=== PATIENT | female | born 1975 | race Caucasian/White ===

== ENCOUNTER 2020-07-16 09:10 | Day surgery (SDC) | payer BC, OTHER ==
[2020-07-13 11:16] LABS: BLOOD UREA NITROGEN,BUN 12 mg/dL (7.0-18.0); CARBON DIOXIDE,CO2 26.1 mmol/L (21.0-32.0); CHLORIDE,CL 104 mmol/L (98-107); GLUCOSE RANDOM 86 mg/dL (74-106); SODIUM,NA 139 mmol/L (136-145)
[~2020-07-16 09:10] MED LIST: Glycopyrrolate 0.2 MG/ML SDV ONE; Ketorolac 30 MG/ML SDV ONE; Lidocaine 2% 5 ML SDV ONE; Midazolam 1 MG/ML 2 ML SDV ONE; Ondansetron 4 MG/2 ML SDV ONE; Propofol 200 MG/20 ML SDV ONE; Rocuronium Bromide 50 MG/5 ML Syringe ONE; Sodium Chloride 0.9% 10 ML SDV IV PRN; Sodium Chloride 0.9% 10 ML Syringe FLUSH PRN; Sodium Chloride 0.9% 2.5 ML Syringe FLUSH PRN; ceFAZolin 2 GM in Premix Bag 1 BAG IV ONE; fentaNYL 250 MCG/5 ML SDV ONE
[2020-07-16] MEDS: Lactated Ringers 1,000 ML IV SCH ×2 (10:00→15:21)
--- NOTE | 2020-07-16 10:07 | PCM.PREANE ---
Preanesthetic Assessment - Anesthesia/Transfusion/Family Hx Anesthesia History: Prior Anesthesia Without Reaction Family History of Anesthesia Reaction: No Transfusion History: Prior Transfusion Without Reaction Intubation History: Unknown - Review of Systems General: No Symptoms Pulmonary: No Symptoms Cardiovascular: No Symptoms Gastrointestinal: No Symptoms Neurological: No Symptoms Other: Reports: None - Physical Assessment Vital Signs: Last Vital Signs Temp 37.1 C 07/16/20 10:01 Pulse 92 07/16/20 10:01 Resp 18 07/16/20 10:01 BP 117/72 07/16/20 10:01 Pulse Ox 96 07/16/20 10:01 Height: 5 ft 7 in Weight: 60.328 kg ASA Class: 2 Mental Status: Alert & Oriented x3 Airway Class: Mallampati = 2 Dentition: Reports: Normal Dentition, Partial (upper andupper and lower) Thyro-Mental Finger Breadths: 3 Mouth Opening Finger Breadths: 2 (very small mouth) ROM/Head Extension: Full Lungs: Clear to Auscultation, Normal Respiratory Effort Cardiovascular: Regular Rate, Regular Rhythm - Lab Values: Laboratory Last Values WBC 7.15 K/uL (4.0-11.0) 07/13/20 10:24 RBC 4.48 M/uL (4.30-5.90) 07/13/20 10:24 Hgb 13.6 g/dL (12.0-16.0) 07/13/20 10:24 Hct 39.4 % (36.0-46.0) 07/13/20 10:24 MCV 87.9 fL (80.0-98.0) 07/13/20 10:24 MCH 30.4 pg (27.0-32.0) 07/13/20 10:24 MCHC 34.5 g/dL (31.0-37.0) 07/13/20 10:24 RDW Std Deviation 40.3 fl (28.0-62.0) 07/13/20 10:24 RDW Coeff of Natanael 13 % (11.0-15.0) 07/13/20 10:24 Plt Count 300 K/uL (150-400) 07/13/20 10:24 MPV 9.30 fL (7.40-12.00) 07/13/20 10:24 Nucleated RBC % 0.0 /100WBC 07/13/20 10:24 Nucleated RBCs # 0 K/uL 07/13/20 10:24 Sodium 139 mmol/L (136-145) 07/13/20 10:24 Potassium 4.0 mmol/L (3.5-5.1) 07/13/20 10:24 Chloride 104 mmol/L (98-107) 07/13/20 10:24 Carbon Dioxide 26.1 mmol/L (21.0-32.0) 07/13/20 10:24 BUN 12 mg/dL (7.0-18.0) 07/13/20 10:24 Creatinine 0.9 mg/dL (0.6-1.0) 07/13/20 10:24 Est Cr Clr Drug Dosing TNP 07/13/20 10:24 Estimated GFR (MDRD) > 60.0 ml/min 07/13/20 10:24 Glucose 86 mg/dL (74-106) 07/13/20 10:24 Calcium 8.6 mg/dL (8.5-10.1) 07/13/20 10:24 HCG, Qual NEGATIVE (NEG) 07/13/20 10:24 Blood Type A POSITIVE 07/13/20 10:30 Antibody Screen NEGATIVE 07/13/20 10:30 - Allergies Allergies/Adverse Reactions: Allergies Allergy/AdvReac Type Severity Reaction Status Date / Time No Known Allergies Allergy Verified 07/16/20 10:01 - Blood Blood Available: No - Anesthesia Plan Pre-Op Medication Ordered: None - Acknowledgements Anesthesia Type Planned: General Anesthesia Pt an Appropriate Candidate for the Planned Anesthesia: Yes Alternatives and Risks of Anesthesia Discussed w Pt/Guardian: Yes Pt/Guardian Understands and Agrees with Anesthesia Plan: Yes PreAnesthesia Questionnaire HEENT History: Reports: Other (See Below) Other HEENT History: has chronic Tinnitis, has upper and lower removable partial dentures Cardiovascular History: Reports: Hypertension Gastrointestinal History: Reports: Other (See Below) Other Gastrointestinal History: some heartburn- no medication OCCUPATIONAL NURSE History: Reports: Musculoskeletal History: Reports: Fracture Other Musculoskeletal History: hx of fx arm as a child Neurological History: Reports: Concussion Psychiatric History: Reports: Anxiety, Depression Hematologic History: Reports: Blood Transfusion(s) Oncologic (Cancer) History: Reports: Cervix - Past Surgical History Head Surgeries/Procedures: Reports: None HEENT Surgical History: Reports: Tonsillectomy GI Surgical History: Reports: Cholecystectomy Female Surgical History: Reports: Section, LEEP - SUBSTANCE USE Tobacco Use Status *Q: Current Every Day Tobacco User (1/2 ppd) Tobacco Use Within Last Twelve Months: Cigarettes Recreational Drug Use History: No - HOME MEDS Home Medications: Home Meds Bisoprolol/Hydrochlorothiazide [Bisoprolol-Hctz 5-6.25 mg Tab] 1 tab PO QAM 07/13/20 [History] - CURRENT (IN HOUSE) MEDS Current Meds: Current Medications Lactated Ringer's (Ringers, Lactated) 1,000 mls @ 125 mls/hr IV ASDIRECTED NASIR Last Admin: 07/16/20 10:00 Dose: 125 mls/hr Documented by: Sodium Chloride (Saline Flush) 10 ml FLUSH ASDIRECTED PRN PRN Reason: Keep Vein Open Sodium Chloride (Saline Flush) 2.5 ml FLUSH ASDIRECTED PRN PRN Reason: Keep Vein Open Sodium Chloride (Normal Saline) 10 ml IV ASDIRECTED PRN PRN Reason: IV Use Discontinued Medications Fentanyl (Sublimaze) Confirm Administered Dose 250 mcg .ROUTE .STK-MED ONE Stop: 07/16/20 07:12 Glycopyrrolate (Robinul) Confirm Administered Dose 0.8 mg .ROUTE .STK-MED ONE Stop: 07/16/20 07:12 Cefazolin Sodium/Dextrose 2 gm (/ Premix) 50 mls @ 100 mls/hr IV ONETIME ONE Stop: 07/13/20 10:14 Ketorolac Tromethamine (Toradol) Confirm Administered Dose 30 mg .ROUTE .STK-MED ONE Stop: 07/16/20 07:12 Lidocaine (Xylocaine-Mpf 2%) Confirm Administered Dose 5 ml .ROUTE .STK-MED ONE Stop: 07/16/20 07:12 Midazolam HCl (Versed 1 Mg/Ml) Confirm Administered Dose 2 mg .ROUTE .STK-MED ONE Stop: 07/16/20 07:12 Ondansetron HCl (Zofran) Confirm Administered Dose 4 mg .ROUTE .STK-MED ONE Stop: 07/16/20 07:12 Propofol (Diprivan 20 Ml) Confirm Administered Dose 200 mg .ROUTE .STK-MED ONE Stop: 07/16/20 07:11 Rocuronium Perris (Rocuronium Perris) Confirm Administered Dose 50 mg .ROUTE .[facility] ONE Stop: 07/16/20 07:12
[2020-07-16] MEDS ORDERED: Scopolamine 1.5 MG Transdermal Patch TRDERM PRN (10:08)
[2020-07-16] MEDS ORDERED: fentaNYL 100 MCG/2 ML SDV IVPUSH PRN (10:21)
[2020-07-16] MEDS ORDERED: Acetaminophen 1,000 MG in Premix Bag 1 BAG IV PRN (10:21)
[2020-07-16] MEDS ORDERED: ceFAZolin 1 GM Vial ONE (12:09)
[2020-07-16] MEDS ORDERED: HYDROmorphone 2 MG/ML Syringe ONE (12:49)
[2020-07-16] MEDS ORDERED: Fluorescein 5 ML Vial ONE (12:55)
[2020-07-16] MEDS ORDERED: Ondansetron 4 MG/2 ML SDV IVPUSH PRN (13:13)
[2020-07-16] MEDS ORDERED: Ketorolac 30 MG/ML SDV IVPUSH ONE (13:13)
[2020-07-16] MEDS ORDERED: Acetaminophen/oxyCODONE 325-5 MG Tab PO PRN (13:13)
[2020-07-16] MEDS ORDERED: Promethazine 25 MG/ML SDV IM PRN (13:13)
--- NOTE | 2020-07-16 13:16 | PCM.OPNOTE ---
- General Post-Op/Procedure Note Date of Surgery/Procedure: 07/16/20 Operative Procedure(s): TVH,Kyrie salpengectomy and cystoscopy. Pre Op Diagnosis: CIS Post-Op Diagnosis: Same Anesthesia Technique: General ET Tube Primary Surgeon: Obed Iraheta EBL in mLs: 100 Complications: None Condition: Good
[2020-07-16] MEDS: Morphine 4 MG/ML Syringe IVPUSH PRN ×2 (14:06→16:32)
--- NOTE | 2020-07-16 14:19 | PCM.POSTAN ---
POST ANESTHESIA ASSESSMENT - MENTAL STATUS Mental Status: Alert, Oriented - VITAL SIGNS Vital Signs: Last Vital Signs Temp 36.7 C 07/16/20 13:15 Pulse 73 07/16/20 14:10 Resp 14 07/16/20 14:10 BP 154/93 H 07/16/20 14:10 Pulse Ox 95 07/16/20 14:10 - RESPIRATORY Respiratory Status: Respiratory Rate WNL, Airway Patent, O2 Saturation Stable - CARDIOVASCULAR CV Status: Pulse Rate WNL, Blood Pressure Stable - GASTROINTESTINAL GI Status: No Symptoms - PAIN Pain Score: 0 - POST OP HYDRATION Hydration Status: Adequate & Stable - OBSERVATIONS Free Text/Narrative:: The patient has no complaints at this time. There were no apparent anesthetic complications at this time. Discharge to floor per criteria.
[2020-07-16] MEDS: Ketorolac 30 MG/ML SDV IVPUSH PRN (21:11)
[2020-07-17] MEDS: Acetaminophen/oxyCODONE 325-5 MG Tab PO PRN ×2 (02:34→06:37)
[2020-07-17] MEDS: Ketorolac 30 MG/ML SDV IVPUSH PRN (04:31)
[2020-07-17 06:09] LABS: CARBON DIOXIDE,CO2 26.8 mmol/L (21.0-32.0); POTASSIUM,K 3.9 mmol/L (3.5-5.1)
[2020-07-17] MEDS ORDERED: Bisacodyl 10 MG Supp RECTAL ONE (06:13)
--- NOTE | 2020-07-17 07:12 | PCM48HPAN ---
Post Anesthesia Note - EVALUATION WITHIN 48HRS OF ANESTHETIC Vital Signs in Normal Range: Yes Patient Participated in Evaluation: Yes Respiratory Function Stable: Yes Airway Patent: Yes Cardiovascular Function Stable: Yes Hydration Status Stable: Yes Pain Control Satisfactory: No Vital Signs: Last Vital Signs Temp 36.9 C 07/17/20 04:32 Pulse 91 07/17/20 04:32 Resp 19 07/17/20 04:32 BP 112/69 07/17/20 04:32 Pulse Ox 100 07/17/20 04:32 - COMMENTS/OBSERVATIONS Free Text/Narrative:: Patient is in pain secondary to constipation. The overnight Nurse was at the patient's side in the bathroom. Patient states that she is constipated and requests an enema. She also complains of pain secondary to the inability to defecate. Patient wants the Nurse to call Dr. Iraheta to request and enema. Recommending 1 dose of IV Tylenol to help with pain control now. This was discussed with the patient's overnight Nurse and she stated that she would have "someone" in OB contact Dr. Iraheta.
[2020-07-17] MEDS ORDERED: Acetaminophen 1,000 MG in Premix Bag 1 BAG IV ONE (07:15)
[2020-07-17 08:07] VITALS: BP 111/78; PULSE 96
--- NOTE | 2020-07-17 09:47 | OR ---
SURGEON: Obed Iraheta MD DATE OF PROCEDURE: 07/16/2020 PREOPERATIVE DIAGNOSIS: Severe dysplasia, carcinoma in situ of the cervix. POSTOPERATIVE DIAGNOSIS: Severe dysplasia, carcinoma in situ of the cervix. OPERATIONS PERFORMED: Total vaginal hysterectomy, vaginal bilateral salpingectomy preserving both ovaries, and cystoscopy. PRIMARY SURGEON: Obed Iraheta MD CIRCUITRY NEGATIVE INSPECTOR: OR nurse and tech. ANESTHESIA: General endotracheal intubation, Dr. Bansal and Gavin. ESTIMATED BLOOD LOSS: Less than 100 mL. COMPLICATIONS: None. FINDINGS: Uterus about 8-week size. Both ovaries essentially are normal. INDICATIONS FOR SURGERY: This patient is 45. She has carcinoma in situ of the cervix and endocervical canal by cervical biopsy. She is finished with her family. She is admitted for hysterectomy, vaginal versus laparoscopic, depending on the examination under anesthesia. PROCEDURE IN DETAIL: The patient was brought to the OR, properly identified. After adequate level of anesthesia, examination under anesthesia was performed and it was deemed possible and safe to do the surgery vaginally. The patient placed in stirrups, prepped and draped in sterile fashion as usual. A short weighted speculum placed in the vagina and straight catheter was used to empty the bladder. Using electrocautery, circular incision in the vaginal mucosa was done and then the posterior cul-de-sac was entered posteriorly with the Thurman scissors. The peritoneum and the vagina tacked posteriorly and the short weighted speculum replaced with extended long weighted speculum. The uterosacral ligaments on both sides clamped with a curved Zeppelin, transected, and suture ligated with 2- 0 Vicryl in a Lilo fashion. The same thing done with the cardinal ligament. Then, the cervicovesical space was entered anteriorly with the Metzenbaum and the bladder retracted completely away from the operative field. The anterior cul-de-sac was entered anteriorly and then the broad ligament was clamped with curved Zeppelin on both sides, transected, and suture ligated with 2-0 Vicryl pop-off at this step and the uterine vessel suture ligated. The round ligament was clamped with curved Zeppelin, transected, and suture ligated with 2-0 Vicryl from both sides. Then, the uterus delivered posteriorly and the superior pedicle was taken with a 90-degree curved Zeppelin. The tubes were included with the specimen, but both ovaries preserved, and then the superior third pedicle was tied twice with a free tie. Inspection of the operative field showed no oozing, no bleeding. We proceeded to close the vaginal cuff with 2-0 Vicryl interrupted [id number] suture. While we were doing that, we asked the Anesthesia personnel to give the patient fluorescein and then cystoscopy was performed. The bladder was intact. Both ureteric orifices seen with the dye coming from both of them. Thus, the patency of both ureters verified. Satisfied with these finding, the procedure ended. Instrument and sponge count was correct. The patient tolerated the procedure well and went to recovery room in stable general condition. MAIRA / SHYAM /[id number]
--- NOTE | 2020-07-17 11:47 | PCM.SURGPN ---
- General Info Date of Service: 07/17/20 POD#: 1 Functional Status: Reports: Pain Controlled - Review of Systems General: Reports: No Symptoms HEENT: Reports: No Symptoms Pulmonary: Reports: No Symptoms Cardiovascular: Reports: No Symptoms Gastrointestinal: Reports: No Symptoms Genitourinary: Reports: No Symptoms Musculoskeletal: Reports: No Symptoms Skin: Reports: No Symptoms Neurological: Reports: No Symptoms Psychiatric: Reports: No Symptoms - Patient Data Vitals - Most Recent: Last Vital Signs Temp 36.9 C 07/17/20 08:06 Pulse 96 07/17/20 08:06 Resp 18 07/17/20 08:06 BP 111/78 07/17/20 08:06 Pulse Ox 100 07/17/20 08:06 Weight - Most Recent: 60.328 kg I&O - Last 24 Hours: Intake & Output 07/16/20 07/17/20 07/17/20 22:59 06:59 14:59 Intake Total 800 Output Total 750 90 Balance 50 -90 Lab Results Last 24 Hrs: Laboratory Results - last 24 hr 07/17/20 07/17/20 07/17/20 Range/Units 05:10 05:10 05:22 WBC 22.08 H (4.0-11.0) K/uL RBC 2.69 L (4.30-5.90) M/uL Hgb 8.1 L (12.0-16.0) g/dL Hct 24.0 L (36.0-46.0) % MCV 89.2 (80.0-98.0) fL MCH 30.1 (27.0-32.0) pg MCHC 33.8 (31.0-37.0) g/dL RDW Std Deviation 41.1 (28.0-62.0) fl RDW Coeff of Natanael 13 (11.0-15.0) % Plt Count 387 (150-400) K/uL MPV 9.70 (7.40-12.00) fL Neut % (Auto) 79.2 (48.0-80.0) % Lymph % (Auto) 15.0 L (16.0-40.0) % George % (Auto) 5.5 (0.0-15.0) % Eos % (Auto) 0.2 (0.0-7.0) % Baso % (Auto) 0.1 (0.0-1.5) % Neut # (Auto) 17.5 H (1.4-5.7) K/uL Lymph # (Auto) 3.3 H (0.6-2.4) K/uL George # (Auto) 1.2 H (0.0-0.8) K/uL Eos # (Auto) 0.0 (0.0-0.7) K/uL Baso # (Auto) 0.0 (0.0-0.1) K/uL Nucleated RBC % 0.0 /100WBC Nucleated RBCs # 0 K/uL Sodium 135 L (136-145) mmol/L Potassium 3.9 (3.5-5.1) mmol/L Chloride 99 (98-107) mmol/L Carbon Dioxide 26.8 (21.0-32.0) mmol/L BUN 25 H (7.0-18.0) mg/dL Creatinine 1.8 H (0.6-1.0) mg/dL Est Cr Clr Drug Dosing 37.59 mL/min Estimated GFR (MDRD) 30.4 ml/min Glucose 138 H (74-106) mg/dL POC Glucose 141 H (60-110) mg/dL Calcium 7.5 L (8.5-10.1) mg/dL Med Orders - Current: Current Medications Fentanyl (Sublimaze) 50 mcg IVPUSH Q5M PRN PRN Reason: Pain Lactated Ringer's (Ringers, Lactated) 1,000 mls @ 125 mls/hr IV ASDIRECTED [facility] Last Admin: 07/16/20 15:21 Dose: 125 mls/hr Documented by: Acetaminophen 1,000 mg/ Premix 100 mls @ 400 mls/hr IV ONETIME PRN PRN Reason: Pain Last Admin: 07/16/20 13:47 Dose: 400 mls/hr Documented by: Ketorolac Tromethamine (Toradol) 30 mg IVPUSH Q6H PRN PRN Reason: Pain (severe 7-10) Stop: 07/21/20 19:16 Last Admin: 07/17/20 04:31 Dose: 30 mg Documented by: Morphine Sulfate (Morphine) 4 mg IVPUSH Q2H PRN PRN Reason: Pain (severe 7-10) Last Admin: 07/16/20 16:32 Dose: 4 mg Documented by: Ondansetron HCl (Zofran) 4 mg IVPUSH Q6H PRN PRN Reason: Nausea/Vomiting Last Admin: 07/16/20 20:51 Dose: 4 mg Documented by: Oxycodone/Acetaminophen (Percocet 325-5 Mg) 1 tab PO Q4H PRN PRN Reason: Pain (moderate 4-6) Last Admin: 07/17/20 06:37 Dose: 1 tab Documented by: Oxycodone/Acetaminophen (Percocet 325-5 Mg) 2 tab PO Q4H PRN PRN Reason: Pain (moderate 4-6) Promethazine HCl (Phenergan) 25 mg IM Q6H PRN PRN Reason: Nausea/Vomiting Scopolamine (Transderm-Scop) 1.5 mg TRDERM Q72H PRN PRN Reason: Nausea Last Admin: 07/16/20 10:22 Dose: 1.5 mg Documented by: Sodium Chloride (Saline Flush) 10 ml FLUSH ASDIRECTED PRN PRN Reason: Keep Vein Open Sodium Chloride (Saline Flush) 2.5 ml FLUSH ASDIRECTED PRN PRN Reason: Keep Vein Open Last Admin: 07/16/20 16:52 Dose: 2.5 ml Documented by: Sodium Chloride (Normal Saline) 10 ml IV ASDIRECTED PRN PRN Reason: IV Use Discontinued Medications Bisacodyl (Dulcolax) 10 mg RECTAL ONETIME ONE Stop: 07/17/20 06:14 Last Admin: 07/17/20 06:38 Dose: 10 mg Documented by: Cefazolin Sodium (Ancef) Confirm Administered Dose 2 gm .ROUTE .STK-MED ONE Stop: 07/16/20 12:10 Fentanyl (Sublimaze) Confirm Administered Dose 250 mcg .ROUTE .STK-MED ONE Stop: 07/16/20 07:12 Fluorescein Sodium (Ak-Fluor) Confirm Administered Dose 5 ml .ROUTE .STK-MED ONE Stop: 07/16/20 12:56 Glycopyrrolate (Robinul) Confirm Administered Dose 0.8 mg .ROUTE .STK-MED ONE Stop: 07/16/20 07:12 Hydromorphone HCl (Dilaudid) Confirm Administered Dose 2 mg .ROUTE .STK-MED ONE Stop: 07/16/20 12:50 Cefazolin Sodium/Dextrose 2 gm (/ Premix) 50 mls @ 100 mls/hr IV ONETIME ONE Stop: 07/13/20 10:14 Acetaminophen (Ofirmev 1000 Mg/100 Ml) Confirm Administered Dose 100 mls @ as directed .ROUTE .STK-MED ONE Stop: 07/16/20 13:46 Acetaminophen 1,000 mg/ Premix 100 mls @ 400 mls/hr IV NOW ONE Stop: 07/17/20 07:29 Ketorolac Tromethamine (Toradol) Confirm Administered Dose 30 mg .ROUTE .STK-MED ONE Stop: 07/16/20 07:12 Ketorolac Tromethamine (Toradol) 30 mg IVPUSH ONETIME ONE Stop: 07/16/20 13:14 Last Admin: 07/16/20 13:00 Dose: 30 mg Documented by: Lidocaine (Xylocaine-Mpf 2%) Confirm Administered Dose 5 ml .ROUTE .STK-MED ONE Stop: 07/16/20 07:12 Midazolam HCl (Versed 1 Mg/Ml) Confirm Administered Dose 2 mg .ROUTE .STK-MED ONE Stop: 07/16/20 07:12 Ondansetron HCl (Zofran) Confirm Administered Dose 4 mg .ROUTE .STK-MED ONE Stop: 07/16/20 07:12 Propofol (Diprivan 20 Ml) Confirm Administered Dose 200 mg .ROUTE .STK-MED ONE Stop: 07/16/20 07:11 Rocuronium Pitkin (Rocuronium Pitkin) Confirm Administered Dose 50 mg .ROUTE .STK-MED ONE Stop: 07/16/20 07:12 - Exam Wound/Incisions: Healing Well General: Alert, Oriented HEENT: Pupils Equal Neck: Supple Lungs: Clear to Auscultation, Normal Respiratory Effort Cardiovascular: Regular Rate, Regular Rhythm GI/Abdominal Exam: Normal Bowel Sounds, Soft, Non-Tender, No Organomegaly, No Distention, No Abnormal Bruit, No Mass, Pelvis Stable Extremities: Normal Inspection, Normal Range of Motion, Non-Tender, No Pedal Edema, Normal Capillary Refill Skin: Warm, Dry, Intact Neurological: No New Focal Deficit Psy/Mental Status: Alert, Normal Affect, Normal Mood Sepsis Event Note - Evaluation Sepsis Screening Result: No Definite Risk - Focused Exam Vital Signs: Vital Signs Temp Pulse Resp BP BP Pulse Ox 07/17/20 08:06 36.9 C 96 18 111/78 100 07/17/20 05:20 37.1 C 106 H 18 109/72 97 07/17/20 04:32 36.9 C 91 19 112/69 100 07/17/20 01:26 36.8 C 82 16 116/56 L 98 - Problem List Review Problem List Initiated/Reviewed/Updated: Yes - My Orders Last 24 Hours: Active Orders 24 hr Category Date Time Status Patient Status [ADT] Routine ADT 07/16/20 13:13 Active Antiembolic Devices [RC] PER UNIT ROUTINE Care 07/16/20 13:14 Active Bennett Catheter Insertion [Insert Urinary Catheter] [OM. Care 07/16/20 16:20 Ordered PC] Q24H Notify Provider Vital Signs [RC] ASDIRECTED Care 07/16/20 13:13 Active Oxygen Therapy [RC] ASDIRECTED Care 07/16/20 13:13 Active RT Incentive Spirometry [RC] Q2HWA Care 07/16/20 13:13 Active Up With Assistance [RC] PER UNIT ROUTINE Care 07/16/20 13:13 Active Up ad Eugenia [RC] PER UNIT ROUTINE Care 07/16/20 13:13 Active Vital Signs [RC] PER UNIT ROUTINE Care 07/16/20 13:13 Active Regular Diet [DIET] Diet 07/16/20 Dinner Active Acetaminophen/oxyCODONE [Percocet 325-5 MG] Med 07/16/20 13:13 Active 1 tab PO Q4H PRN Acetaminophen/oxyCODONE [Percocet 325-5 MG] Med 07/16/20 13:13 Active 2 tab PO Q4H PRN Ketorolac [Toradol] Med 07/16/20 19:15 Active 30 mg IVPUSH Q6H PRN Morphine Med 07/16/20 13:13 Active 4 mg IVPUSH Q2H PRN Ondansetron [Zofran] Med 07/16/20 13:13 Active 4 mg IVPUSH Q6H PRN Promethazine [Phenergan] Med 07/16/20 13:13 Active 25 mg IM Q6H PRN Peripheral IV Discontinue [OM.PC] Routine Oth 07/16/20 13:13 Ordered Sequential Compression Device [OM.PC] Per Unit Routine Oth 07/16/20 13:13 Ordered Resuscitation Status Routine Resus Stat 07/16/20 13:13 Ordered Medication Orders Fentanyl (Sublimaze) 50 mcg IVPUSH Q5M PRN PRN Reason: Pain Lactated Ringer's (Ringers, Lactated) 1,000 mls @ 125 mls/hr IV ASDIRECTED NASIR Last Admin: 07/16/20 15:21 Dose: 125 mls/hr Documented by: Infusion: 07/16/20 15:21 Dose: 125 mls/hr Documented by: Admin: 07/16/20 10:00 Dose: 125 mls/hr Documented by: SHEREEN Acetaminophen 1,000 mg/ Premix 100 mls @ 400 mls/hr IV ONETIME PRN PRN Reason: Pain Last Admin: 07/16/20 13:47 Dose: 400 mls/hr Documented by: HOLLY Ketorolac Tromethamine (Toradol) 30 mg IVPUSH Q6H PRN PRN Reason: Pain (severe 7-10) Stop: 07/21/20 19:16 Last Admin: 07/17/20 04:31 Dose: 30 mg Documented by: Admin: 07/16/20 21:11 Dose: 30 mg Documented by: DEMETRICE Morphine Sulfate (Morphine) 4 mg IVPUSH Q2H PRN PRN Reason: Pain (severe 7-10) Last Admin: 07/16/20 16:32 Dose: 4 mg Documented by: Admin: 07/16/20 14:06 Dose: 4 mg Documented by: HOLLY Ondansetron HCl (Zofran) 4 mg IVPUSH Q6H PRN PRN Reason: Nausea/Vomiting Last Admin: 07/16/20 20:51 Dose: 4 mg Documented by: DEMETRICE Oxycodone/Acetaminophen (Percocet 325-5 Mg) 1 tab PO Q4H PRN PRN Reason: Pain (moderate 4-6) Last Admin: 07/17/20 06:37 Dose: 1 tab Documented by: Admin: 07/17/20 02:34 Dose: 1 tab Documented by: DEMETRICE Oxycodone/Acetaminophen (Percocet 325-5 Mg) 2 tab PO Q4H PRN PRN Reason: Pain (moderate 4-6) Promethazine HCl (Phenergan) 25 mg IM Q6H PRN PRN Reason: Nausea/Vomiting Scopolamine (Transderm-Scop) 1.5 mg TRDERM Q72H PRN PRN Reason: Nausea Last Admin: 07/16/20 10:22 Dose: 1.5 mg Documented by: FENSGLO Sodium Chloride (Saline Flush) 10 ml FLUSH ASDIRECTED PRN PRN Reason: Keep Vein Open Sodium Chloride (Saline Flush) 2.5 ml FLUSH ASDIRECTED PRN PRN Reason: Keep Vein Open Last Admin: 07/16/20 16:52 Dose: 2.5 ml Documented by: HINDTIF Sodium Chloride (Normal Saline) 10 ml IV ASDIRECTED PRN PRN Reason: IV Use - Assessment Assessment (Free Text/Narrative):: Doing well. - Plan Plan (Free Text/Narrative):: Post hysterectomy instruction.
== END 2020-07-17 13:17 | disposition home or self-care (01) ==
LOC: MW.SDS 09:10 → MW.OB 17:21 → MW.SDS 07-17 13:17
PROVIDERS: ATTEND Obstetrics & Gynecology
DX: D06.0 Carcinoma in situ of endocervix (principal); R87.620 Atypical squamous cells of undetermined significance on cytologic smear of vagina (ASC-US); R87.811 Vaginal high risk human papillomavirus (HPV) DNA test positive; I10 Essential (primary) hypertension; Z79.899 Other long term (current) drug therapy; F17.210 Nicotine dependence, cigarettes, uncomplicated; Z98.890 Other specified postprocedural states
CPT/HCPCS: 36415; 51702; 58262; 80048; 82962; 84703; 85025; 85027; 86850; 86900; 86901; 88307; A9270; J0131; J0690; J1170; J1885; J2250; J2270; J2405; J2704; J3010; J3490; J7120; 00944

== ENCOUNTER 2020-07-19 02:12 | Emergency (ER) | payer OTHER ==
[2020-07-19] MEDS ORDERED: Sodium Chloride 0.9% 2.5 ML Syringe FLUSH PRN (02:32)
[2020-07-19] MEDS ORDERED: Sodium Chloride 0.9% 10 ML Syringe FLUSH PRN (02:32)
[2020-07-19] MEDS ORDERED: Lactated Ringers 1,000 ML IV ONE (02:33)
--- NOTE | 2020-07-19 02:34 | EDM.PDOC ---
ED HPI GENERAL MEDICAL PROBLEM - General Chief Complaint: Abdominal Pain Stated Complaint: RECENT HYSTERECTOMY, ABDOMINAL PAIN Time Seen by Provider: 07/19/20 02:24 - History of Present Illness INITIAL COMMENTS - FREE TEXT/NARRATIVE: 45-year-old female who is 2 days postop from a transvaginal hysterectomy. Patient states that she has not been able to have a bowel movement since the procedure she has had gradually worsening bloating and fullness. She states she does not have a large amount of abdominal pain may be 5 out of 10. No fevers or chills no trouble urinating. No vomiting. Patient states she is tried to Dulcolax as an enemas without improvement. She denies any vaginal bleeding or discharge. - Related Data Allergies Allergy/AdvReac Type Severity Reaction Status Date / Time No Known Allergies Allergy Verified 07/19/20 02:22 Home Meds: Home Meds Bisoprolol/Hydrochlorothiazide [Bisoprolol-Hctz 5-6.25 mg Tab] 1 tab PO QAM PRN 07/13/20 [History] Hydrocodone/Acetaminophen [Hydrocodon-Acetaminoph 2.5-325] 1 each PO Q6HR 07/19/20 [History] Past Medical History HEENT History: Reports: Other (See Below) Other HEENT History: has chronic Tinnitis, has upper and lower removable partial dentures Cardiovascular History: Reports: Hypertension Gastrointestinal History: Reports: Other (See Below) Other Gastrointestinal History: some heartburn- no medication SHIRRING TENDER History: Reports: Musculoskeletal History: Reports: Fracture Other Musculoskeletal History: hx of fx arm as a child Neurological History: Reports: Concussion Psychiatric History: Reports: Anxiety, Depression Hematologic History: Reports: Blood Transfusion(s) Oncologic (Cancer) History: Reports: Cervix - Past Surgical History Head Surgeries/Procedures: Reports: None HEENT Surgical History: Reports: Tonsillectomy GI Surgical History: Reports: Cholecystectomy Female Surgical History: Reports: Section, LEEP ED ROS GENERAL - Review of Systems Review Of Systems: See Below Free Text/Narrative/Comment: General: No fever. Neck: No neck stiffness. Respiratory: No shortness of breath. Cardiac: No chest pain. Gastrointestinal: Per HPI Urinary: No dysuria. Musculoskeletal: No myalgias/arthralgias. Neurologic: No headache. ED EXAM, GENERAL - Physical Exam Exam: See Below Free Text/Narrative:: General Appearance: No acute distress, appears comfortable Skin: No rash HEENT: Normocephalic/atraumatic, sclera anicteric, mucous membranes dry Neck: Normal range of motion Chest and Lungs: Bilateral breath sounds, clear to auscultation Cardiovascular: Tachycardic rate and regular rhythm, no murmur Abdomen: Soft, minimal bilateral lower quadrant tenderness but no guarding or rebound. Back: Normal Musculoskeletal: No edema or tenderness Neurologic: Awake, alert, no obvious deficits, moving all extremities Psychiatric: Appropriate, cooperative Course - Vital Signs Last Recorded V/S: Last Vital Signs Temp 98.9 F 07/19/20 02:24 Pulse 115 H 07/19/20 02:59 Resp 18 07/19/20 02:45 BP 122/77 07/19/20 02:45 Pulse Ox 100 07/19/20 02:45 - Orders/Labs/Meds Orders: Active Orders 24 hr Category Date Time Status Abdomen Pelvis w Cont [CT] Stat Exams 07/19/20 02:32 Ordered CBC WITH AUTO DIFF [HEME] Stat Lab 07/19/20 02:32 Ordered COMPREHENSIVE METABOLIC PN,CMP [CHEM] Stat Lab 07/19/20 02:32 Ordered LACTIC ACID,WHOLE BLOOD [BG] Stat Lab 07/19/20 02:32 Ordered Lactated Ringers [Ringers, Lactated] 1,000 ml Med 07/19/20 02:33 Active IV .BOLUS Sodium Chloride 0.9% [Saline Flush] Med 07/19/20 02:32 Active 10 ml FLUSH ASDIRECTED PRN Sodium Chloride 0.9% [Saline Flush] Med 07/19/20 02:32 Active 2.5 ml FLUSH ASDIRECTED PRN Saline Lock Insert [OM.PC] Stat Oth 07/19/20 02:32 Ordered Medication Orders Lactated Ringer's (Ringers, Lactated) 1,000 mls @ 999 mls/hr IV .BOLUS ONE Stop: 07/19/20 03:33 Sodium Chloride (Saline Flush) 10 ml FLUSH ASDIRECTED PRN PRN Reason: Keep Vein Open Sodium Chloride (Saline Flush) 2.5 ml FLUSH ASDIRECTED PRN PRN Reason: Keep Vein Open Meds: Medications Generic Name Dose Route Start Last Admin Trade Name Freq PRN Reason Stop Dose Admin Lactated Ringer's 1,000 mls @ 999 mls/hr 07/19/20 02:33 Ringers, Lactated IV 07/19/20 03:33 .BOLUS ONE Sodium Chloride 10 ml 07/19/20 02:32 Saline Flush FLUSH ASDIRECTED PRN Keep Vein Open Sodium Chloride 2.5 ml 07/19/20 02:32 Saline Flush FLUSH ASDIRECTED PRN Keep Vein Open Departure - Departure Time of Disposition: 03:20 Disposition: Against Medical Advice 07 Condition: Fair Clinical Impression: Constipation - Discharge Information *PRESCRIPTION DRUG MONITORING PROGRAM REVIEWED*: Not Applicable *COPY OF PRESCRIPTION DRUG MONITORING REPORT IN PATIENT SAVITA: Not Applicable Instructions: Constipation, Adult Referrals: Jose King MD [Primary Care Provider] - Forms: ED Department Discharge Additional Instructions: You are leaving the ER AGAINST MEDICAL ADVICE. Your heart rate remains elevated and I am concerned that you are dehydrated or could have another potentially serious medical process. If you do indeed have any bleeding or infection contributing to your pain and this can put your life at risk. I encourage you to monitor carefully how you are feeling and if you change your mind or feel worse at any time I encourage you to return to the ER right away. Please be sure to keep your postoperative appointments as scheduled. The following information is given to patients seen in the emergency department who are being discharged to home. This information is to outline your options for follow-up care. We provide all patients seen in our emergency department with a follow-up referral. The need for follow-up, as well as the timing and circumstances, are variable depending upon the specifics of your emergency department visit. If you don't have a primary care physician on staff, we will provide you with a referral. We always advise you to contact your personal physician following an emergency department visit to inform them of the circumstance of the visit and for follow-up with them and/or the need for any referrals to a consulting specialist. The emergency department will also refer you to a specialist when appropriate. This referral assures that you have the opportunity for follow-up care with a specialist. All of these measure are taken in an effort to provide you with optimal care, which includes your follow-up. Under all circumstances we always encourage you to contact your private physician who remains a resource for coordinating your care. When calling for follow-up care, please make the office aware that this follow-up is from your recent emergency room visit. If for any reason you are refused follow-up, please contact the [facility] Emergency Department at and asked to speak to the emergency department charge nurse. Sepsis Event Note (ED) - Evaluation Sepsis Screening Result: No Definite Risk - Focused Exam Vital Signs: Vital Signs Temp Pulse Resp BP Pulse Ox 07/19/20 02:59 115 H 07/19/20 02:45 120 H 18 122/77 100 07/19/20 02:24 98.9 F 126 H 18 115/44 L 99 - My Orders Last 24 Hours: My Active Orders 07/19/20 02:32 Abdomen Pelvis w Cont [CT] Stat CBC WITH AUTO DIFF [HEME] Stat COMPREHENSIVE METABOLIC PN,CMP [CHEM] Stat LACTIC ACID,WHOLE BLOOD [BG] Stat Sodium Chloride 0.9% [Saline Flush] 10 ml FLUSH ASDIRECTED PRN Sodium Chloride 0.9% [Saline Flush] 2.5 ml FLUSH ASDIRECTED PRN Saline Lock Insert [OM.PC] Stat 07/19/20 02:33 Lactated Ringers [Ringers, Lactated] 1,000 ml IV .BOLUS - Assessment/Plan Last 24 Hours: My Active Orders 07/19/20 02:32 Abdomen Pelvis w Cont [CT] Stat CBC WITH AUTO DIFF [HEME] Stat COMPREHENSIVE METABOLIC PN,CMP [CHEM] Stat LACTIC ACID,WHOLE BLOOD [BG] Stat Sodium Chloride 0.9% [Saline Flush] 10 ml FLUSH ASDIRECTED PRN Sodium Chloride 0.9% [Saline Flush] 2.5 ml FLUSH ASDIRECTED PRN Saline Lock Insert [OM.PC] Stat 07/19/20 02:33 Lactated Ringers [Ringers, Lactated] 1,000 ml IV .BOLUS Assessment:: 45-year-old female presenting with signs and symptoms that could simply be due to postoperative constipation. However she is quite tachycardic as well. Given this IV fluid has been ordered CBC CMP lactic acid as well and CT scan to assess for any signs of postoperative bleeding or acute infective process. Further treatment and disposition pending results of initial work-up and response to therapy. 0242: Patient had a large bowel movement in the bathroom and now feels much better. She is currently refusing blood work or further evaluation. She initially wanted to go home. I discussed with her that her heart rate was somewhat high and her blood pressure is somewhat low. For this reason the patient has agreed to stay drink some water and allow reassessment. If she continues to feel well she keeps down the fluids and her vital signs trend towards normal and I think she could safely be discharged. However, if that is not the case and we will either proceed with work-up or she will sign out AMA. 0320: Pt has drunk 1 cup of water. Pt's HR has improved. However, remains mildly tachycardic at 115. Pt con't to refuse IVF or any additional work up. She is unwilling to wait any longer. Patient will sign out AMA. The patient has elected to leave the emergency department against my medical advice. The patient is awake, alert, not clinically intoxicated and verbalizes understanding to me that medical work-up started so far in the ED is not finished. The patient verbalizes understanding that by signing out against medical advice, the patient may have a bad outcome including worsening clinical condition and but still refuses to stay for observation, further testing or admission. I spent time answering all of the patient's questions and I offered reasonable alternatives. I told the patient to return to the ED at any time for further evaluation and to seek immediate medical care or call 911 should there be any worsening symptoms.
[2020-07-19 03:33] VITALS: BP 124/74; PULSE 116
== END 2020-07-19 03:20 | disposition left against medical advice (07) ==
LOC: MW.ED 02:12
DX: K59.00 Constipation, unspecified (principal); R00.0 Tachycardia, unspecified; I10 Essential (primary) hypertension; Z90.710 Acquired absence of both cervix and uterus
CPT/HCPCS: 99283

== ENCOUNTER 2020-08-06 02:28 | Emergency (ER) | payer OTHER ==
[2020-08-06] MEDS ORDERED: Morphine 4 MG/ML Syringe IVPUSH ONE (03:02)
[2020-08-06 03:37] LABS: BLOOD UREA NITROGEN,BUN 19 mg/dL (7.0-18.0); CHLORIDE,CL 103 mmol/L (98-107); GLUCOSE RANDOM 101 mg/dL (74-106); POTASSIUM,K 4.2 mmol/L (3.5-5.1); SODIUM,NA 139 mmol/L (136-145)
[2020-08-06] MEDS ORDERED: Iopamidol 755 MG/ML 500 ML Multipack Bottle IVPUSH STA (03:53)
[2020-08-06] MEDS ORDERED: HYDROmorphone 1 MG/ML Syringe IVPUSH ONE (04:11)
--- NOTE | 2020-08-06 04:54 | CT ---
INDICATION: Vaginal bleeding. Status post hysterectomy 07/16/2020. Bleeding began 2 days ago. COMPARISON: None available TECHNIQUE: CT examination of the pelvis was performed with the uneventful intravenous administration of 88 cc of Isovue 370 while 2.5 mm thick axial sections were obtained from the superior iliac crest through the pubic symphysis. Oral contrast was not administered. Please note that all CT scans at this facility use dose modulation, iterative reconstruction, and/or weight-based dosing when appropriate to reduce radiation dose to as low as reasonably achievable. FINDINGS: : In the pelvis, the appendix is nonvisualized, but there is no sign of an inflammatory process in the area of the appendix. The loops of small bowel and colon in the pelvis are normal in appearance. There is a large rounded fluid collection located in the midline superior to the vaginal cuff and urinary bladder with mildly heterogeneity, consistent with a large postoperative seroma. This measures 8.5 x 9.8 x 7.0 centimeters. An abscess cannot be excluded. The uterus is absent consistent with hysterectomy. There does appear to be a small amount of gas in the vaginal cuff extending into the fluid collection described above. No abnormality seen in the adnexal regions. The urinary bladder is normal in appearance. There is no sign of pelvic or inguinal mass or adenopathy. There is no sign of free fluid or free air in the pelvis. The osseous structures are normal in appearance for the patient`s age. IMPRESSION: Status post hysterectomy with a large, rounded, slightly heterogeneous fluid collection located in the midline superior to the vaginal cuff and urinary bladder measuring 8.5 x 9.8 x 7.0 centimeters. This is probably a postoperative seroma, although it could be a postoperative abscess. There does appear to be a connection between this fluid collection in the vaginal cuff, with a few bubbles of gas seen in the vaginal cuff extending into the fluid collection. The adnexal regions are normal in appearance. Please note that all CT scans at this facility use dose modulation, iterative reconstruction, and/or weight-based dosing when appropriate to reduce radiation dose to as low as reasonably achievable. Dictated by Graham Zhang MD @ Aug 06 2020 4:45AM Signed by Dr. Graham Zhang @ Aug 06 2020 4:52AM
--- NOTE | 2020-08-06 05:12 | EDM.PDOC ---
ED HPI GENERAL MEDICAL PROBLEM - General Chief Complaint: RETAIL OPERATIONS MANAGER Problem Stated Complaint: RECENT HYSTERECTOMY- BLEEDING Time Seen by Provider: 08/06/20 02:32 - History of Present Illness INITIAL COMMENTS - FREE TEXT/NARRATIVE: CHIEF COMPLAINT(S): Vaginal bleeding HISTORY OF PRESENT ILLNESS: This is a 45-year-old woman with a past medical history of hysterectomy on July 16, 2020 who comes to the emergency department with a chief complaint of vaginal bleeding. The patient states that she had some bleeding during the surgery however the bleeding stopped approximately 1 day after discharge. She states that her hemoglobin was low at the time but she states that she has been doing well. She states that this week she returned to work and starting approximately 3 days ago she started to experience increased vaginal bleeding. She states that she soaking through an ultrathin pad every 3 hours with reddish blood. She states that she has some associated pelvic pain which is intermittent sharp rated 8 out of 10. She states that it does decrease to 1 out of 10 when she takes Advil and Aleve. She states that the bleeding seems to worsen when she uses the restroom and that the last time she went to the restroom there has not been as much. She denies any fevers, chills, purulent drainage out of the vagina. REVIEW OF SYSTEMS: Constitutional: Denies fever, chills. Eyes: Denies eye pain Ears, Nose, Mouth, & Throat: Denies earache Cardiovascular: Denies chest pain Respiratory: Denies shortness of breath Gastrointestinal: Denies Nausea, vomiting, diarrhea, hematochezia. Genitourinary: Positive for vaginal bleeding and pelvic pain. Denies hematuria, dysuria, vaginal discharge Skin:Denies a rash MSK: Denies joint pain Neurological: Denies blurred vision Psychiatric: Denies depression PAST MEDICAL HISTORY: As per history of present illness and as reviewed below otherwise noncontributory. SURGICAL HISTORY: As per history of present illness and as reviewed below otherwise noncontributory. SOCIAL HISTORY: As per history of present illness and as reviewed below otherwise noncontributory. FAMILY HISTORY: As per history of present illness and as reviewed below otherwise noncontributory. EXAMINATION OF ORGAN SYSTEMS/BODY AREAS: Constitutional: Blood pressure was 126/75, heart rate 100, respiratory rate 18 with an oxygen saturation of 100% on room air. Temperature 36.3 General: Overall well-appearing woman who appears to be in a mild amount of pain. Psychiatric: Appropriate mood and affect. Eyes: No scleral icterus or conjunctival erythema ENMT: Moist mucous membranes. No pharyngeal erythema Cardiovascular: Regular, rate, and rhythm. No gallops, murmurs, or rubs. Bilateral upper extremity pulses symmetric and intact. No peripheral edema. Respiratory: Lungs clear to auscultation bilaterally. No wheezes, rales, or rhonchi. Gastrointestinal: Soft, non-tender, non-distended. Normoactive bowel sounds Genitourinary: There is moderate tenderness to palpation in the suprapubic r egion. I did perform a limited speculum examination with RN bag cutter in presence. There does not appear to be bowel in the vaginal canal and there is a small amount of dark blood in the posterior vaginal vault. No purulent drainage. Musculoskeletal: Normal range of motion. Skin: No lesions or abrasions. Neurological: Alert, GCS 15 MEDICAL DECISION MAKING AND COURSE IN THE ED WITH INTERPRETATION/REVIEW OF DIAGNOSTIC STUDIES: This is a 45-year-old woman with a past medical history of recent hysterectomy who comes to the emergency department with increased vaginal bleeding and pelvic pain. On speculum examination there is not appear to be dehiscence however I am concerned about the possibility infection or vaginal cuff abnormalities. I did contact Rosa Henson who is on-call and she recommended contacting surgeon for further recommendations. Dr. Daily who is her physician and Dr. Parker who is in the same group are not listed as industrial relations officer. So I contacted Dr. Wells who recommends CT pelvis and labs and then eventual evaluation by insurance processor for speculum examination. Therefore we will obtain labs and a CT pelvis with contrast. I provided the patient with 4 mg of IV morphine. Laboratory: CBC reveals a normocytic anemia with a hemoglobin of 9.4 and hematocrit of 28.4 which is increased from prior at 6.8. There is thrombocytosis at 65 otherwise unremarkable. No white count. INR is normal. BMP is unremarkable. There is hypocalcemia at 8.0. The radiological images were viewed by myself along with reading the report from the radiologist. CT pelvis with contrast reveals pelvis was status post hysterectomy with a large rounded slight heterogenous fluid collection located in the midline superior to the vaginal cuff and urinary bladder measuring 8.5 x 9.8 x 7 cm. This is likely a postoperative seroma although can also be a postoperative abscess. There does appear to be a connection between this fluid collection in the vaginal cuff with a few bubbles of gas seen in the vaginal cuff extending into the fluid collection. After imaging I did discuss results with the patient. At this time I did contact the patient's insurance processor Dr. Daily who stated that given no white count no fever that this is a seroma and that she should follow-up in clinic on Monday. I did discuss the plan with the patient. She was amenable to this plan. I provided the patient with a work excuse. She is to return for any new worsening symptoms such as fever, purulent drainage, worsening pain. DISPOSITION: The patient was discharged home in stable condition. The patient will follow up with OB on 08/07/2020 CONDITION: Fair PROCEDURES: None FINAL IMPRESSION(S)/DIAGNOSES: 1. Acute postoperative seroma 2. Acute pelvic postoperative pain secondary to #1 Wai Olguin M.D. Lower Abdomen Pain Score (Numeric/FACES): 5 - Related Data Allergies Allergy/AdvReac Type Severity Reaction Status Date / Time No Known Allergies Allergy Verified 08/06/20 02:41 Home Meds: Home Meds Bisoprolol/Hydrochlorothiazide [Bisoprolol-Hctz 5-6.25 mg Tab] 1 tab PO QAM PRN 07/13/20 [History] Past Medical History HEENT History: Reports: Other (See Below) Other HEENT History: has chronic Tinnitis, has upper and lower removable partial dentures Cardiovascular History: Reports: Hypertension Respiratory History: Reports: None Gastrointestinal History: Reports: Diverticulosis, Other (See Below) Other Gastrointestinal History: some heartburn- no medication Genitourinary History: Reports: None 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: Musculoskeletal History: Reports: Fracture Other Musculoskeletal History: hx of fx arm as a child Neurological History: Reports: Concussion Psychiatric History: Reports: Anxiety, Depression Endocrine/Metabolic History: Reports: None Insulin Pump Model and Boring Machine Operator Helper: None Hematologic History: Reports: Blood Transfusion(s) Immunologic History: Reports: None Oncologic (Cancer) History: Reports: Cervix Dermatologic History: Reports: None - Infectious Disease History Infectious Disease History: Reports: None - Past Surgical History Head Surgeries/Procedures: Reports: None HEENT Surgical History: Reports: Tonsillectomy GI Surgical History: Reports: Cholecystectomy Female Surgical History: Reports: Section, Hysterectomy, LEEP Social & Family History - Tobacco Use Tobacco Use Status *Q: Current Every Day Tobacco User Years of Tobacco use: 30 Packs/Tins Daily: 0.5 - Caffeine Use Caffeine Use: Reports: Soda - Recreational Drug Use Recreational Drug Use: No ED ROS GENERAL - Review of Systems Review Of Systems: See Below ED EXAM, RENAL/ - Physical Exam Exam: See Below Course - Vital Signs Last Recorded V/S: Last Vital Signs Temp 36.3 C 08/06/20 02:41 Pulse 80 08/06/20 05:18 Resp 14 08/06/20 05:18 BP 117/74 08/06/20 05:18 Pulse Ox 96 08/06/20 05:18 - Orders/Labs/Meds Labs: Laboratory Tests 08/06/20 08/06/20 08/06/20 Range/Units 03:13 03:13 03:13 WBC 10.47 (4.0-11.0) K/uL RBC 3.25 L (4.30-5.90) M/uL Hgb 9.4 L (12.0-16.0) g/dL Hct 28.4 L (36.0-46.0) % MCV 87.4 (80.0-98.0) fL MCH 28.9 (27.0-32.0) pg MCHC 33.1 (31.0-37.0) g/dL RDW Std Deviation 43.8 (28.0-62.0) fl RDW Coeff of Natanael 14 (11.0-15.0) % Plt Count 605 H (150-400) K/uL MPV 8.40 (7.40-12.00) fL Neut % (Auto) 69.5 (48.0-80.0) % Lymph % (Auto) 19.2 (16.0-40.0) % [place] % (Auto) 7.1 (0.0-15.0) % Eos % (Auto) 4.0 (0.0-7.0) % Baso % (Auto) 0.2 (0.0-1.5) % Neut # (Auto) 7.3 H (1.4-5.7) K/uL Lymph # (Auto) 2.0 (0.6-2.4) K/uL [place] # (Auto) 0.7 (0.0-0.8) K/uL Eos # (Auto) 0.4 (0.0-0.7) K/uL Baso # (Auto) 0.0 (0.0-0.1) K/uL Nucleated RBC % 0.0 /100WBC Nucleated RBCs # 0 K/uL INR 1.07 Sodium 139 (136-145) mmol/L Potassium 4.2 (3.5-5.1) mmol/L Chloride 103 (98-107) mmol/L Carbon Dioxide 25.0 (21.0-32.0) mmol/L BUN 19 H (7.0-18.0) mg/dL Creatinine 0.9 (0.6-1.0) mg/dL Est Cr Clr Drug Dosing 73.48 mL/min Estimated GFR (MDRD) > 60.0 ml/min Glucose 101 (74-106) mg/dL Calcium 8.0 L (8.5-10.1) mg/dL Blood Type Antibody Screen 08/06/20 Range/Units 03:13 WBC (4.0-11.0) K/uL RBC (4.30-5.90) M/uL Hgb (12.0-16.0) g/dL Hct (36.0-46.0) % MCV (80.0-98.0) fL MCH (27.0-32.0) pg MCHC (31.0-37.0) g/dL RDW Std Deviation (28.0-62.0) fl RDW Coeff of Natanael (11.0-15.0) % Plt Count (150-400) K/uL MPV (7.40-12.00) fL Neut % (Auto) (48.0-80.0) % Lymph % (Auto) (16.0-40.0) % [place] % (Auto) (0.0-15.0) % Eos % (Auto) (0.0-7.0) % Baso % (Auto) (0.0-1.5) % Neut # (Auto) (1.4-5.7) K/uL Lymph # (Auto) (0.6-2.4) K/uL [place] # (Auto) (0.0-0.8) K/uL Eos # (Auto) (0.0-0.7) K/uL Baso # (Auto) (0.0-0.1) K/uL Nucleated RBC % /100WBC Nucleated RBCs # K/uL INR Sodium (136-145) mmol/L Potassium (3.5-5.1) mmol/L Chloride (98-107) mmol/L Carbon Dioxide (21.0-32.0) mmol/L BUN (7.0-18.0) mg/dL Creatinine (0.6-1.0) mg/dL Est Cr Clr Drug Dosing mL/min Estimated GFR (MDRD) ml/min Glucose (74-106) mg/dL Calcium (8.5-10.1) mg/dL Blood Type A POSITIVE Antibody Screen NEGATIVE Meds: Medications Discontinued Medications Generic Name Dose Route Start Last Admin Trade Name Freq PRN Reason Stop Dose Admin Hydromorphone HCl 0.5 mg 08/06/20 04:11 08/06/20 04:17 Dilaudid IVPUSH 08/06/20 04:12 0.5 mg ONETIME ONE Administration Iopamidol 80 ml 08/06/20 03:53 08/06/20 03:56 Isovue Multipack-370 (76%) IVPUSH 08/06/20 03:54 80 ml ONETIME STA Administration Morphine Sulfate 4 mg 08/06/20 03:02 08/06/20 03:13 Morphine IVPUSH 08/06/20 03:03 4 mg ONETIME ONE Administration Departure - Departure Time of Disposition: 05:11 Disposition: Home, Self-Care 01 Condition: Fair Clinical Impression: Seroma - Discharge Information *PRESCRIPTION DRUG MONITORING PROGRAM REVIEWED*: No *COPY OF PRESCRIPTION DRUG MONITORING REPORT IN PATIENT SAVITA: No Instructions: Seroma Referrals: Jose King MD [Primary Care Provider] - Forms: ED Department Discharge Additional Instructions: Your evaluated today on an emergent basis. At this time there is a fluid collection just above the vaginal cuff. This is thought to be a seroma which is a fluid-filled collection. I did contact your ocularist and he recommended follow-up in 2 days. If you have worsening pain, fever, or pus drainage from the vagina please return to the emergency department. Please continue to take Tylenol and Motrin for pain relief. [facility] [address] [place] [address] [facility] [address] [place] [id number] The patient is informed of any results of their evaluation and diagnostic workup and all questions are answered. They are given discharge instructions and return precautions. The patient is stable for discharge. The patient states they understand and agree with the plan and that they will return if their symptoms get worse or if they have any new concerns. The following information is given to patients seen in the emergency department who are being discharged to home. This information is to outline your options for follow-up care. We provide all patients seen in our emergency department with a follow-up referral. The need for follow-up, as well as the timing and circumstances, are variable depending upon the specifics of your emergency department visit. If you don't have a primary care physician on staff, we will provide you with a referral. We always advise you to contact your personal physician following an emergency department visit to inform them of the circumstance of the visit and for follow-up with them and/or the need for any referrals to a consulting specialist. The emergency department will also refer you to a specialist when appropriate. This referral assures that you have the opportunity for follow-up care with a specialist. All of these measure are taken in an effort to provide you with optimal care, which includes your follow-up. Under all circumstances we always encourage you to contact your private physician who remains a resource for coordinating your care. When calling for follow-up care, please make the office aware that this follow-up is from your recent emergency room visit. If for any reason you are refused follow-up, please contact the [facility] Emergency Department at and asked to speak to the emergency department charge nurse. Sepsis Event Note (ED) - Evaluation Sepsis Screening Result: No Definite Risk - Focused Exam Vital Signs: Vital Signs Temp Pulse Resp BP Pulse Ox 08/06/20 05:18 80 14 117/74 96 08/06/20 03:48 99 16 101/66 100 03/04/21 02:41 36.3 C 100 18 126/75 100
[2020-08-06 05:19] VITALS: BP 117/74; PULSE 80
== END 2020-08-06 05:24 | disposition home or self-care (01) ==
LOC: MW.ED 02:28
DX: N99.842 Postprocedural seroma of a genitourinary system organ or structure following a genitourinary system procedure (principal); G89.18 Other acute postprocedural pain; R10.2 Pelvic and perineal pain; I10 Essential (primary) hypertension; Z72.0 Tobacco use; Z90.710 Acquired absence of both cervix and uterus; Z79.899 Other long term (current) drug therapy
CPT/HCPCS: 36415; 72193; 80048; 85025; 85610; 86850; 86900; 86901; 96374; 96375; 99284; J1170; J2270; Q9967; 99283

== ENCOUNTER 2020-12-21 00:20 | Emergency (ER) | payer SELFPAY ==
[2020-12-21] MEDS ORDERED: Ibuprofen 600 MG Tab PO ONE (00:40)
--- NOTE | 2020-12-21 01:09 | CR ---
For Patients: As a result of the Century Cures Act, medical imaging exams and procedure reports are released immediately into your electronic medical record. You may view this report before your referring provider. If you have questions, please contact your health care provider. INDICATION: Fall. TECHNIQUE: Left wrist radiographs, 3 views. COMPARISON: None available. FINDINGS: No dislocation or acute fracture. Joint spaces are maintained. Soft tissues unremarkable. IMPRESSION: Negative left wrist radiographs. If clinical concern for radiographically occult scaphoid fracture, consider immobilization and repeat radiographs in 7-10 days. Dictated by Hitesh Townsend MD @ 12/21/2020 1:08:29 AM Dictated by: Hitesh Townsend MD @ 12/21/2020 01:08:34 (Electronically Signed)
--- NOTE | 2020-12-21 01:13 | EDM.PDOC ---
ED HPI GENERAL MEDICAL PROBLEM - General Chief Complaint: Upper Extremity Injury/Pain Stated Complaint: LEFT WRIST PAIN Time Seen by Provider: 12/21/20 00:30 - History of Present Illness INITIAL COMMENTS - FREE TEXT/NARRATIVE: HISTORY AND PHYSICAL: History of present illness: Is a 45-year-old female who presents ER today secondary to left wrist pain from fall with outstretched hand. Patient denies any head trauma. Patient reports she tripped and fell. Patient has recent fevers, shakes, chills, nausea, vomiting, diarrhea. Patient has any dizziness, weakness or loss of consciousness. Patient denies any injury anywhere else. Patient is right-hand dominant. Patient reports that she has no prior injury to her left wrist. Review of systems: As per history of present illness and below otherwise all systems reviewed and negative. Past medical history: As per history of present illness and as reviewed below otherwise noncontributory. Surgical history: As per history of present illness and as reviewed below otherwise noncontributory. Social history: No reported history of drug abuse. Family history: As per history of present illness and as reviewed below otherwise noncontributory. Physical exam: This patient was seen and evaluated during the 2019 SARS-CoV-2 novel coronavirus pandemic period. Community viral transmission is ongoing at time of this encounter and the emergency department is operating under pandemic response procedures. Constitutional: Patient is oriented to person, place, and time. Appears well- developed and well-nourished. No distress. HEENT: Moist mucous membranes Head: Normocephalic and atraumatic Eyes: Right eye exhibits no discharge. Left eye exhibits no discharge. No scleral icterus Neck: Normal range of motion. No tracheal deviation present. Cardiovascular: Normal rate and regular rhythm. Pulmonary: Effort normal, no respiratory distress. Abdominal: No distention Musculoskeletal: Normal range of motion Neurologic: Alert and oriented to person, place and time. Skin: [place], warm and dry. Psychiatric: Normal mood and affect. Behavior is normal. Judgment and thought content normal. Nursing note and vital signs have been reviewed Patient's ER physical exam is significant for some mild soft tissue swelling to the dorsum of her left wrist with some tenderness to palpation. No bony deformity, no ecchymosis. Patient is neurovascular intact otherwise. No snuffbox tenderness Diagnostics: X-ray left wrist: No acute fracture dislocation as interpreted by Dr. Reynolds. Radiology report reviewed without any significant discrepancies. Therapeutics: Ibuprofen 60 mg p.o. DME note: A left Velcro wrist splint was ordered secondary to ligamentous injury to her left wrist. This will assist the patient by stabilizing the joint and assist with healing of the ligaments. This will need to stay in place for 10 days. Assessment and plan: 45-year-old with injury to her left wrist. X-rays negative for fracture. This appears to be most consistent with a left wrist sprain. Patient be placed in a Velcro wrist splint for 10 days and will be instructed to follow-up with her primary care physician as needed. Patient will be given a prescription for ibuprofen to this with pain and discomfort. Reassessment at the time of disposition demonstrates that the patient is in no acute distress. The patient has remained stable throughout the entire ED visit and is without objective evidence for acute process requiring urgent intervention or hospitalization. The patient is stable for discharge, counseling is provided as documented above, discussed symptomatic treatment and specific conditions for return. I have spoken with the patient/caregiver and discussed todays findings, in addition to providing specific details for the plan of care. Questions are answered and there is agreement with the plan. Definitive disposition and diagnosis as appropriate pending reevaluation and review of above. Left Wrist Pain Score (Numeric/FACES): 5 - Related Data Allergies Allergy/AdvReac Type Severity Reaction Status Date / Time No Known Allergies Allergy Verified 08/06/20 02:41 Home Meds: Home Meds Bisoprolol/Hydrochlorothiazide [Bisoprolol-Hctz 5-6.25 mg Tab] 1 tab PO QAM PRN 07/13/20 [History] Ibuprofen 600 mg PO Q6HR PRN #30 tablet 12/21/20 [Rx] Past Medical History HEENT History: Reports: Other (See Below) Other HEENT History: has chronic Tinnitis, has upper and lower removable partial dentures Cardiovascular History: Reports: Hypertension Respiratory History: Reports: None Gastrointestinal History: Reports: Diverticulosis, Other (See Below) Other Gastrointestinal History: some heartburn- no medication Genitourinary History: Reports: None RISK ADVISOR History: Reports: Musculoskeletal History: Reports: Fracture Other Musculoskeletal History: hx of fx arm as a child Neurological History: Reports: Concussion Psychiatric History: Reports: Anxiety, Depression Endocrine/Metabolic History: Reports: None Insulin Pump Model and Commercial Agent: None Hematologic History: Reports: Blood Transfusion(s) Immunologic History: Reports: None Oncologic (Cancer) History: Reports: Cervix Dermatologic History: Reports: None - Infectious Disease History Infectious Disease History: Reports: None - Past Surgical History Head Surgeries/Procedures: Reports: None HEENT Surgical History: Reports: Tonsillectomy GI Surgical History: Reports: Cholecystectomy Female Surgical History: Reports: Section, Hysterectomy, LEEP Social & Family History - Family History Family Medical History: No Pertinent Family History - Tobacco Use Tobacco Use Status *Q: Current Every Day Tobacco User Years of Tobacco use: 1 Packs/Tins Daily: 1 - Caffeine Use Caffeine Use: Reports: Coffee - Recreational Drug Use Recreational Drug Use: No Review of Systems - Review of Systems Review Of Systems: See Below ED EXAM, GENERAL - Physical Exam Exam: See Below Course - Vital Signs Last Recorded V/S: Last Vital Signs Temp 98.3 F 12/21/20 00:32 Pulse 105 H 12/21/20 00:32 Resp 18 12/21/20 00:32 BP 121/79 12/21/20 00:32 Pulse Ox 98 12/21/20 00:32 - Orders/Labs/Meds Orders: Active Orders 24 hr Category Date Time Status DME for Discharge [COMM] Stat Oth 12/21/20 01:11 Ordered Meds: Medications Discontinued Medications Generic Name Dose Route Start Last Admin Trade Name Freq PRN Reason Stop Dose Admin Ibuprofen 600 mg 12/21/20 00:40 12/21/20 00:56 Ibuprofen 600 Mg Tab PO 12/21/20 00:41 600 mg ONETIME ONE Administration Departure - Departure Time of Disposition: 01:11 Disposition: Home, Self-Care 01 Condition: Good Clinical Impression: Left wrist sprain Qualifiers: Encounter type: initial encounter Qualified Code(s): S63.502A - Unspecified sprain of left wrist, initial encounter - Discharge Information Prescriptions: Ibuprofen 600 mg PO Q6HR PRN #30 tablet PRN Reason: Pain Instructions: Wrist Sprain, Adult Referrals: Jose King MD [Primary Care Provider] - Forms: ED Department Discharge Additional Instructions: You were seen and evaluated in ER today secondary to a sprain of your left wrist. The x-ray that we obtain did not reveal any acute fracture. You are given a Velcro splint to wear for comfort for 10 days. You also be given a prescription for ibuprofen to take for pain as needed. Please follow-up with orthopedic clinic in 1 week if your pain persists or if you have any persistent discomfort. [facility] Professional [facility] [address] [place] [address], [address] [place] [address] The following information is given to patients seen in the emergency department who are being discharged to home. This information is to outline your options for follow-up care. We provide all patients seen in our emergency department with a follow-up referral. The need for follow-up, as well as the timing and circumstances, are variable depending upon the specifics of your emergency department visit. If you don't have a primary care physician on staff, we will provide you with a referral. We always advise you to contact your personal physician following an emergency department visit to inform them of the circumstance of the visit and for follow-up with them and/or the need for any referrals to a consulting specialist. The emergency department will also refer you to a specialist when appropriate. This referral assures that you have the opportunity for follow-up care with a specialist. All of these measure are taken in an effort to provide you with optimal care, which includes your follow-up. Under all circumstances we always encourage you to contact your private physician who remains a resource for coordinating your care. When calling for follow-up care, please make the office aware that this follow-up is from your recent emergency room visit. If for any reason you are refused follow-up, please contact the [facility] Emergency Department at and asked to speak to the emergency department charge nurse. [facility] [address], [place] [address] [facility] [address] [place] [id number] Sepsis Event Note (ED) - Evaluation Sepsis Screening Result: No Definite Risk - Focused Exam Vital Signs: Vital Signs Temp Pulse Resp BP Pulse Ox 12/21/20 00:32 98.3 F 105 H 18 121/79 98 - My Orders Last 24 Hours: My Active Orders 12/21/20 01:11 DME for Discharge [COMM] Stat - Assessment/Plan Last 24 Hours: My Active Orders 12/21/20 01:11 DME for Discharge [COMM] Stat
[2020-12-21 01:40] VITALS: BP 120/65; PULSE 96
== END 2020-12-21 01:40 | disposition home or self-care (01) ==
LOC: MW.ED 00:20
DX: S63.502A Unspecified sprain of left wrist, initial encounter (principal); I10 Essential (primary) hypertension; Z72.0 Tobacco use; W01.0XXA Fall on same level from slipping, tripping and stumbling without subsequent striking against object, initial encounter
CPT/HCPCS: 73110; 99283; A9270

== ENCOUNTER 2023-01-23 15:21 | Emergency (ER) | payer SELFPAY ==
[2023-01-23] MEDS ORDERED: Sodium Chloride 0.9% 2.5 ML Syringe FLUSH PRN (15:28)
[2023-01-23] MEDS ORDERED: Sodium Chloride 0.9% 10 ML Syringe FLUSH PRN (15:28)
[2023-01-23 16:34] LABS: BASOPHILS PERCENT AUTO 0.5 % (0.0-1.5); EOSINOPHILS ABSOLUTE AUTO 0.2 K/uL (0.0-0.7); EOSINOPHILS PERCENT AUTO 1.8 % (0.0-7.0); HEMATOCRIT 34.5 % (36.0-46.0); HEMOGLOBIN 12.1 g/dL (12.0-16.0); LYMPHOCYTES ABSOLUTE AUTO 2.2 K/uL (0.6-2.4); LYMPHOCYTES PERCENT AUTO 26.3 % (16.0-40.0); MEAN CORPUSCULAR HEMOGLOBIN 30.8 pg (27.0-32.0); MEAN CORPUSCULAR HGB CONC 35.1 g/dL (31.0-37.0); MEAN CORPUSCULAR VOLUME 87.8 fL (80.0-98.0); MONOCYTES ABSOLUTE AUTO 0.6 K/uL (0.0-0.8); MONOCYTES PERCENT AUTO 6.6 % (0.0-15.0); NEUTROPHILS ABSOLUTE AUTO 5.5 K/uL (1.4-5.7); NEUTROPHILS PERCENT AUTO 64.8 % (48.0-80.0); NRBC ABSOLUTE 0 K/uL; PLATELET COUNT,PLT 262 K/uL (150-400); RED BLOOD CELL COUNT 3.93 M/uL (4.30-5.90); WHITE BLOOD CELL COUNT,WBC 8.43 K/uL (4.0-11.0)
[2023-01-23 17:03] LABS: A/G RATIO 1.1 (0.9-1.6); ALBUMIN 3.3 g/dL (3.4-5.0); BILIRUBIN TOTAL 0.8 mg/dL (0.2-1.0); CALCIUM 8.6 mg/dL (8.5-10.1); CARBON DIOXIDE,CO2 25.5 mmol/L (21.0-32.0); CREATININE 1.2 mg/dL (0.6-1.0); EST CRCL DRUG DOSING (CG) 54.25 mL/min; POTASSIUM,K 3.5 mmol/L (3.5-5.1); PROTEIN TOTAL,TP 6.4 g/dL (6.4-8.2)
[2023-01-23] MEDS ORDERED: Sodium Chloride 0.9% 1,000 ML IV ONE (17:34)
[2023-01-23 18:43] VITALS: BP 108/75; PULSE 88
== END 2023-01-23 19:18 | disposition left against medical advice (07) ==
LOC: MW.ED 15:21
DX: R07.9 Chest pain, unspecified (principal); I95.2 Hypotension due to drugs; I10 Essential (primary) hypertension; Z82.49 Family history of ischemic heart disease and other diseases of the circulatory system; Z20.822 Contact with and (suspected) exposure to COVID-19
CPT/HCPCS: 36415; 71046; 80053; 83690; 83735; 84484; 85025; 85379; 87635; 93005; 96360; 99285; J3490; J7030; 93010; 99283; U0002

== ENCOUNTER 2024-02-13 10:08 | Emergency (ER) | payer SELFPAY ==
[2024-02-13 10:21] VITALS: PULSE 83
[2024-02-13] MEDS: Tetracaine HCl/PF 0.5% 4 ML Bottle EYEBOTH ONE (10:33)
[2024-02-13] MEDS: Fluorescein 1 MG Ophth Strip EYEBOTH ONE (10:33)
[2024-02-13] MEDS: Ibuprofen 600 MG Tab PO ONE (11:02)
[2024-02-13] MEDS: traMADol 50 MG Tab PO ONE (11:03)
[2024-02-13] MEDS: Gentamicin 0.3% Ophth Soln 5 ML Bottle EYERT ONE (11:03)
[2024-02-13 11:07] VITALS: BP 106/52
[2024-02-13] MEDS ORDERED: Gentamicin 0.3% Ophth Soln 5 ML Bottle EYERT SCH (14:00)
== END 2024-02-13 11:07 | disposition home or self-care (01) ==
LOC: MW.ED 10:08
DX: S05.01XA Injury of conjunctiva and corneal abrasion without foreign body, right eye, initial encounter (principal); I10 Essential (primary) hypertension; F17.210 Nicotine dependence, cigarettes, uncomplicated; Z90.49 Acquired absence of other specified parts of digestive tract; Z90.710 Acquired absence of both cervix and uterus; Z79.899 Other long term (current) drug therapy; Z75.8 Other problems related to medical facilities and other health care; W22.8XXA Striking against or struck by other objects, initial encounter
CPT/HCPCS: 99283; A9270; J3490